=== PATIENT | female | born 1985 | race Caucasian/White ===

== ENCOUNTER 2017-06-22 22:08 | Emergency (ER) | payer MEDICARE ==
[~2017-06-22] VITALS: Ht 160 cm; Wt 79.4 kg
[2017-06-22 22:23] VITALS: BP_SYST 120
--- NOTE | 2017-06-22 22:23 | NUR ---
Patient triaged and placed in waiting room. VSS and patient appears in no acute distress at this time. Accompanied by family, awaiting available bed, and MD notified of need for MSE.
--- NOTE | 2017-06-23 00:25 | NUR ---
Patient to ER [facility] for evaluation. Side rails up. Report given to Scott DUTTON.
--- NOTE | 2017-06-23 00:30 | NUR ---
Patient arrived to ED a/o x 4 with c/o generalized malaise x 1 week. Patient reports N/V and ABD pain radiating to L flank. Denies changes in urology. No ABD distention noted. Skin warm and dry. Denies SOB. Afebrile. Will continue to monitor.
--- NOTE | 2017-06-23 00:32 | NUR ---
ED MD Doherty at bedside for medical evaluation.
[2017-06-23] MEDS ORDERED: ONDANSETRON 4 MG ODT TAB PO ONE (01:00)
[2017-06-23 01:03] LABS: BILIRUBIN,URINE NEGATIVE (NEGATIVE); BLOOD, URINE NEGATIVE (NEGATIVE); CLARITY/URINE CLEAR (CLEAR); COLOR,URINE YELLOW (YELLOW); GLUCOSE,URINE NEGATIVE (NEGATIVE); KETONES,URINE NEGATIVE (NEGATIVE); LEUKOCYTE ESTERASE ,URINE NEGATIVE (NEGATIVE); NITRITE, URINE NEGATIVE (NEGATIVE); PH,URINE 5.5 (5.0-8.0); PROTEIN URINE NEGATIVE (NEGATIVE); UROBILINOGEN,URINE 0.2 (0.2-1.0)
[2017-06-23 01:47] VITALS: BP_SYST 131
--- NOTE | 2017-06-23 01:47 | NUR ---
Patient given written and verbal discharge instructions and verbalizes understanding. ER MD discussed with patient the results and treatment provided. Patient in stable condition. ID arm band removed. No Rx given. Patient educated on pain management and to follow up with PMD. Pain Scale 0/10. Opportunity for questions provided and answered.
== END 2017-06-23 01:47 | disposition home or self-care (01) ==
LOC: SED 22:08
DX: K59.00 Constipation, unspecified (principal); J40 Bronchitis, not specified as acute or chronic; J06.9 Acute upper respiratory infection, unspecified
CPT/HCPCS: 74176; 81003; 81025; 99285; Q0162